=== PATIENT | female | born 1970 | race Caucasian/White ===

== ENCOUNTER 2022-04-08 13:29 | Emergency (ER) | payer MEDICAID, MEDICARE ==
[~2022-04-08] VITALS: Ht 152.4 cm; Wt 118.0 kg
[2022-04-08] MEDS ORDERED: METF10004 (13:46)
[2022-04-08] MEDS ORDERED: LISI5TAB11 (13:46)
[2022-04-08] MEDS ORDERED: HUMI40IN2 (13:46)
[2022-04-08] MEDS ORDERED: ATOR40TA75 (13:46)
[2022-04-08] MEDS ORDERED: LANTINJ4 (13:46)
[2022-04-08] MEDS ORDERED: TRAZ-252 (13:46)
[2022-04-08] MEDS ORDERED: HYDR200T3 (13:46)
[2022-04-08] MEDS ORDERED: METF500T13 (13:46)
[2022-04-08] MEDS ORDERED: TRUL10IN (13:46)
[2022-04-08] MEDS ORDERED: METH2.5T48 (13:46)
[2022-04-08] MEDS ORDERED: LIDOCAINE 1% MDV 20ML VIAL SC ONE (16:30)
[2022-04-08] MEDS ORDERED: CIPRHCOTIC OTIC (16:33)
[2022-04-08] MEDS ORDERED: NYSTOI TOP (16:35)
[2022-04-08 17:11] LABS: BASO # 0.1 10^3/uL (0.0-0.2); BASO % 0.6 % (0.0-1.0); EOS # 0.2 10^3/uL (0.0-0.5); EOS % 1.7 % (0.0-3.0); HEMATOCRIT 41.1 % (36.0-47.0); HEMOGLOBIN 13.8 g/dl (12.0-15.5); LYMPH # 2.6 10^3/uL (1.5-5.0); LYMPH % 26.9 % (24.0-44.0); MEAN CORPUSCULAR HEMOGLOBIN 31.4 pg (27.0-33.0); MEAN CORPUSCULAR HGB CONC 33.6 g/dl (32.0-36.5); MEAN CORPUSCULAR VOLUME 93.4 fl (80.0-96.0); MONO # 0.6 10^3/uL (0.0-0.8); MONO % 5.9 % (2.0-8.0); NEUTROPHILS # 6.2 10^3/uL (1.5-8.5); NEUTROPHILS % 64.6 % (36.0-66.0); PLATELET COUNT, AUTOMATED 282 10^3/uL (150-450); WHITE BLOOD COUNT 9.5 10^3/uL (4.0-10.0)
[2022-04-08 17:28] LABS: ALBUMIN 3.5 GM/DL (3.2-5.2); ALT/SGPT 34 U/L (12-78); BILIRUBIN,DIRECT < 0.1 MG/DL (0.0-0.2); BILIRUBIN,TOTAL 0.2 MG/DL (0.2-1.0); TOTAL PROTEIN 7.8 GM/DL (6.4-8.2)
[2022-04-08] MEDS ORDERED: NYST15OI4 TOP (17:55)
[2022-04-08] MEDS ORDERED: BACITRACIN OINTMENT 30GM TUBE TOP ONE (18:10)
[2022-04-08 18:32] VITALS: BP 117/76
[2022-04-08] MEDS ORDERED: FLUC150T9 PO ×2 (20:26→20:28)
== END 2022-04-08 18:35 | disposition home or self-care (01) ==
LOC: M ED 13:29
DX: E11.9 Type 2 diabetes mellitus without complications (principal); B37.2 Candidiasis of skin and nail; H66.91 Otitis media, unspecified, right ear; L02.821 Furuncle of head [any part, except face]; I10 Essential (primary) hypertension; E78.5 Hyperlipidemia, unspecified; Z79.899 Other long term (current) drug therapy; Z79.4 Long term (current) use of insulin; Z79.84 Long term (current) use of oral hypoglycemic drugs; Z88.0 Allergy status to penicillin; Z88.8 Allergy status to other drugs, medicaments and biological substances; F17.200 Nicotine dependence, unspecified, uncomplicated

== ENCOUNTER 2023-03-14 22:02 | Inpatient (IN) | payer MEDICARE, MEDICAID ==
[~2023-03-14] VITALS: Ht 152.4 cm; Wt 123.5 kg
[~2023-03-14 22:02] MED LIST: ATOR40TA75 PO; CIPRHCOTIC OTIC; FLUC150T9 PO; HUMI40IN2 INJ; HYDR200T3 PO; LANTINJ4 SUBQ; LISI5TAB11 PO; METF10004 PO; METF500T13; METH2.5T48 PO; NYST100085 TOP; NYST15OI4 TOP; TRAZ-252 PO; TRUL10IN
[2023-03-14] MEDS ORDERED: NS 1,000 ML IV ONE (22:55)
[2023-03-14] MEDS ORDERED: ONDANSETRON 4MG 2ML VIAL IV ONE (22:55)
[2023-03-14 23:20] LABS: VENOUS BASE EXCESS -3.4 (-2.0-2.0); VENOUS HCO3 20.7 MMOL/L (23.0-27.0); VENOUS O2 SATURATION 95.9 % (60.0-80.0); VENOUS PARTIAL PRESSURE CO2 34.4 mmHg (38.0-50.0); VENOUS PARTIAL PRESSURE O2 83.8 mmHg (30.0-50.0); VENOUS PH 7.398 UNITS (7.330-7.430); VENOUS STANDARD HCO3 21.6 MMOL/L; VENOUS TOTAL CO2 21.8 MMOL/L (24.0-28.0)
[2023-03-14 23:48] LABS: HEMATOCRIT 32.4 % (36.0-47.0); HEMOGLOBIN 11.3 g/dl (12.0-15.5); MEAN CORPUSCULAR HEMOGLOBIN 30.5 pg (27.0-33.0); MEAN CORPUSCULAR HGB CONC 34.9 g/dl (32.0-36.5); MEAN CORPUSCULAR VOLUME 87.6 fl (80.0-96.0)
[2023-03-14 23:58] LABS: ETHYL ALCOHOL (ETHANOL) < 0.003 % (0.000-0.010)
[2023-03-14 23:59] LABS: ACETAMINOPHEN LEVEL 7.5 UG/ML (10.0-20.0); CPK CREATINE PHOSPHOKINASE 63 U/L (34-145); SALICYLATE LEVEL < 3.0 MG/DL (<30)
[2023-03-15] VITALS (7 sets, daily range): BP systolic 114–147; BP diastolic 53–65
[2023-03-15 00:04] LABS: PLATELET COUNT, AUTOMATED 97 10^3/uL (150-450)
[2023-03-15 00:05] LABS: OSMOLALITY SERUM 291 MOSM/KG (275-295)
[2023-03-15 00:07] LABS: ALBUMIN 1.9 G/DL (3.2-5.2); ALKALINE PHOSPHATASE 185 U/L (46-116); ALT/SGPT 31 U/L (7.0-40); AST/SGOT 32 U/L (<34); BILIRUBIN,DIRECT 0.4 MG/DL (<0.4); BILIRUBIN,TOTAL 0.6 MG/DL (0.3-1.2); BLOOD UREA NITROGEN 95 MG/DL (9-23); CARBON DIOXIDE LEVEL 19 MMOL/L (20-31); CHLORIDE LEVEL 80 MMOL/L (98-107); CK-MB VALUE MASS < 1.0 NG/ML (<3.6); CREATININE FOR GFR 4.06 MG/DL (0.55-1.30); GLOMERULAR FILTRATION RATE 12.4 (>51); GLUCOSE, FASTING 317 MG/DL (60-100); MB/CK RELATIVE INDEX 1.58 (< OR =4); POTASSIUM SERUM 3.5 MMOL/L (3.5-5.1); SODIUM LEVEL 116 MMOL/L (136-145); THYROID STIMULATING HORMONE 0.901 uIU/ML (0.55-4.78); TOTAL PROTEIN 5.5 G/DL (5.7-8.2)
[2023-03-15 00:14] LABS: LYMPHOCYTES 8 % (16-44); MONOCYTES 5 % (0-5); NEUTROPHILS 87 % (28-66); PLATELET ESTIMATE DECREASED (NORMAL)
[2023-03-15] MEDS ORDERED: cefTRIAXone SOD 2 GM in D5W MINI-BAG PLUS 50 ML IV ONE (02:05)
[2023-03-15] MEDS ORDERED: NS 500 ML IV ONE (02:45)
[2023-03-15] MEDS ORDERED: MOM 30ML SUSPENSION UDC PO PRN (02:45)
[2023-03-15] MEDS ORDERED: ACETAMINOPHEN TAB 650MG DOSE (2X325MG) PO PRN (02:45)
[2023-03-15] MEDS ORDERED: GLUCAGON INJ 1MG VIAL SC PRN (02:45)
[2023-03-15] MEDS ORDERED: GLUCOSE 4GM CHEW TABLET PO PRN (02:45)
[2023-03-15] MEDS ORDERED: DEXTROSE 50% 50ML SYRINGE IV PRN (02:45)
[2023-03-15] MEDS ORDERED: LANTINJ4 SC (02:52)
[2023-03-15] MEDS ORDERED: TRUL0.5I INJ (02:54)
[2023-03-15] MEDS ORDERED: ASPI81TA26 PO (02:54)
[2023-03-15] MEDS ORDERED: CITA20TA7 PO (02:54)
[2023-03-15] MEDS ORDERED: stool softener PO (02:58)
[2023-03-15] MEDS ORDERED: OMEP40CA5 PO (02:58)
[2023-03-15] MEDS ORDERED: NIAC100T9 PO (02:58)
[2023-03-15] MEDS ORDERED: THERTAB52 PO (02:58)
[2023-03-15] MEDS ORDERED: HOME MED LIST COMPLETE! XX SCH (03:00)
[2023-03-15] MEDS: HEPARIN SOD (PORCINE) 5000UNITS/ML 1ML VIAL/SYRINGE SC SCH ×2 (05:38→13:07)
[2023-03-15 06:03] LABS: HEMATOCRIT 32.1 % (36.0-47.0); HEMOGLOBIN 11.1 g/dl (12.0-15.5); MEAN CORPUSCULAR HEMOGLOBIN 30.2 pg (27.0-33.0); MEAN CORPUSCULAR HGB CONC 34.6 g/dl (32.0-36.5); MEAN CORPUSCULAR VOLUME 87.5 fl (80.0-96.0); RED BLOOD COUNT 3.67 10^6/uL (4.00-5.40); WHITE BLOOD COUNT 27.2 10^3/uL (4.0-10.0)
[2023-03-15 06:20] LABS: CK-MB VALUE MASS < 1.0 NG/ML (<3.6)
[2023-03-15 06:21] LABS: PLATELET COUNT, AUTOMATED 94 10^3/uL (150-450)
[2023-03-15 06:22] LABS: CPK CREATINE PHOSPHOKINASE 57 U/L (34-145); MB/CK RELATIVE INDEX 1.75 (< OR =4)
[2023-03-15 06:24] LABS: ALBUMIN 1.8 G/DL (3.2-5.2); ALKALINE PHOSPHATASE 191 U/L (46-116); ALT/SGPT 28 U/L (7.0-40); AST/SGOT 27 U/L (<34); BILIRUBIN,TOTAL 0.5 MG/DL (0.3-1.2); BLOOD UREA NITROGEN 95 MG/DL (9-23); CALCIUM LEVEL 7.7 MG/DL (8.5-10.1); CARBON DIOXIDE LEVEL 23 MMOL/L (20-31); CHLORIDE LEVEL 81 MMOL/L (98-107); CREATININE FOR GFR 4.02 MG/DL (0.55-1.30); GLOMERULAR FILTRATION RATE 12.5 (>51); GLUCOSE, FASTING 313 MG/DL (60-100); POTASSIUM SERUM 3.6 MMOL/L (3.5-5.1); SODIUM LEVEL 117 MMOL/L (136-145); TOTAL PROTEIN 5.3 G/DL (5.7-8.2)
[2023-03-15 06:46] LABS: AMORPHOUS SEDIMENT SMALL (NEGATIVE); APPEARANCE, URINE CLOUDY (CLEAR); BACTERIA, URINE AUTO 1+ (NEGATIVE); BILIRUBIN, URINE AUTO NEGATIVE (NEGATIVE); BLOOD, URINE BLOOD 3+ (NEGATIVE); COLOR, URINE YELLOW (YELLOW); GLUCOSE, URINE (UA) AUTO NEGATIVE (NEGATIVE); KETONE, URINE AUTO NEGATIVE (NEGATIVE); LEUKOCYTE ESTERASE, URINE AUTO 3+ (NEGATIVE); NITRITE, URINE AUTO NEGATIVE (NEGATIVE); PROTEIN, URINE AUTO 2+ mg/dL (NEGATIVE); RBC, URINE AUTO 5 /HPF (0-3); SQUAMOUS EPITHELIAL CELL UR AU 2 /HPF (0-6); UROBILINOGEN, URINE AUTO 0.2 mg/dL (0.0-2.0); WBC, URINE AUTO TNTC /HPF (0-3)
[2023-03-15] MEDS: INSULIN LISPRO (NovoLOG) PER UNIT SC SCH ×4 (08:18→21:00)
[2023-03-15 08:55] LABS: AMPHETAMINES LEVEL URINE NEGATIVE (NEGATIVE); BARBITURATES URINE NEGATIVE (NEGATIVE); BENZODIAZEPINES URINE NEGATIVE (NEGATIVE); CANNABINOIDS URINE NEGATIVE (NEGATIVE); COCAINE METABOLITE URINE NEGATIVE (NEGATIVE); METHADONE URINE NEGATIVE (NEGATIVE); OPIATES URINE NEGATIVE (NEGATIVE); PHENCYCLIDINE URINE NEGATIVE (NEGATIVE)
[2023-03-15] MEDS: NS 1,000 ML IV SCH ×2 (09:10→21:05)
[2023-03-15] MEDS: LEVEMIR (INSULIN DETEMIR) 1 UNITS/0.01ML SC SCH ×2 (12:46→21:05)
[2023-03-15] MEDS: ASPIRIN 81MG ENTERIC TABLET PO SCH (12:47)
[2023-03-15] MEDS: ATORVASTATIN 20 MG TAB PO SCH (12:47)
[2023-03-15] MEDS: CitaloPRAM (CeleXA) 20 MG TAB PO SCH (12:47)
[2023-03-15] MEDS: PANTOPRAZOLE 40MG TAB (PROTONIX) PO SCH (12:48)
[2023-03-15 13:34] LABS: OSMOLALITY URINE 204 MOSM/KG (50-1400)
[2023-03-15 13:45] LABS: SODIUM,RANDOM URINE 15 MMOL/L
[2023-03-16] MEDS ORDERED: cefTRIAXone SOD 2 GM in D5W MINI-BAG PLUS 50 ML IV SCH (03:00)
[2023-03-16 04:01] VITALS: BP 116/50
[2023-03-16 04:12] LABS: HEMATOCRIT 30.3 % (36.0-47.0); HEMOGLOBIN 10.7 g/dl (12.0-15.5); MEAN CORPUSCULAR HEMOGLOBIN 30.5 pg (27.0-33.0); MEAN CORPUSCULAR HGB CONC 35.3 g/dl (32.0-36.5); MEAN CORPUSCULAR VOLUME 86.3 fl (80.0-96.0); PLATELET COUNT, AUTOMATED 100 10^3/uL (150-450); RED BLOOD COUNT 3.51 10^6/uL (4.00-5.40); WHITE BLOOD COUNT 27.1 10^3/uL (4.0-10.0)
[2023-03-16 04:34] LABS: ATYPICAL LYMPH 2 % (0-5); LYMPHOCYTES 9 % (16-44); MONOCYTES 5 % (0-5); NEUTROPHILS 84 % (28-66); PLATELET ESTIMATE DECREASED (NORMAL)
[2023-03-16 04:35] LABS: POLYCHROMASIA 1+
[2023-03-16 04:36] LABS: CALCIUM LEVEL 7.4 MG/DL (8.5-10.1); CREATININE FOR GFR 3.88 MG/DL (0.55-1.30)
[2023-03-16] MEDS: POTASSIUM CHLORIDE 10MEQ SR TABLET PO SCH ×2 (05:59→08:27)
[2023-03-16] MEDS: NS 1,000 ML IV SCH ×2 (06:06→18:14)
[2023-03-16 07:24] VITALS: BP 112/58
[2023-03-16] MEDS: INSULIN LISPRO (NovoLOG) PER UNIT SC SCH ×4 (07:30→20:48)
[2023-03-16] MEDS: PANTOPRAZOLE 40MG TAB (PROTONIX) PO SCH (08:27)
[2023-03-16] MEDS: ATORVASTATIN 20 MG TAB PO SCH (08:27)
[2023-03-16] MEDS: CitaloPRAM (CeleXA) 20 MG TAB PO SCH (08:27)
[2023-03-16] MEDS: ASPIRIN 81MG ENTERIC TABLET PO SCH (08:27)
[2023-03-16 09:15] LABS: C REACTIVE PROTEIN QUANTITATIV 21.2 MG/DL (<1.0)
[2023-03-16] MEDS: CEFEPIME HCL 1 GM in D5W MINI-BAG PLUS 50 ML IV SCH ×2 (10:11→21:11)
[2023-03-16 11:14] LABS: OSMOLALITY URINE 158 MOSM/KG (50-1400)
[2023-03-16 11:31] LABS: SODIUM,RANDOM URINE 14 MMOL/L
[2023-03-16 11:43] VITALS: BP 106/62
[2023-03-16 12:11] LABS: POTASSIUM SERUM 3.8 MMOL/L (3.5-5.1)
[2023-03-16] MEDS: HEPARIN SOD (PORCINE) 5000UNITS/ML 1ML VIAL/SYRINGE SQ SCH ×2 (14:28→21:11)
[2023-03-16 15:49] VITALS: BP 108/55
[2023-03-16 19:54] VITALS: BP 104/42
[2023-03-16 20:03] VITALS: BP 121/63
[2023-03-16] MEDS: LEVEMIR (INSULIN DETEMIR) 1 UNITS/0.01ML SC SCH (21:12)
[2023-03-17] VITALS (7 sets, daily range): BP systolic 106–142; BP diastolic 56–67
[2023-03-17] MEDS: NS 1,000 ML IV SCH (03:03)
[2023-03-17 04:08] LABS: HEMATOCRIT 30.4 % (36.0-47.0); HEMOGLOBIN 10.5 g/dl (12.0-15.5); MEAN CORPUSCULAR HEMOGLOBIN 30.2 pg (27.0-33.0); MEAN CORPUSCULAR HGB CONC 34.5 g/dl (32.0-36.5); MEAN CORPUSCULAR VOLUME 87.4 fl (80.0-96.0); PLATELET COUNT, AUTOMATED 123 10^3/uL (150-450); RED BLOOD COUNT 3.48 10^6/uL (4.00-5.40); WHITE BLOOD COUNT 22.4 10^3/uL (4.0-10.0)
[2023-03-17 04:35] LABS: C REACTIVE PROTEIN QUANTITATIV 15.2 MG/DL (<1.0)
[2023-03-17] MEDS: HEPARIN SOD (PORCINE) 5000UNITS/ML 1ML VIAL/SYRINGE SQ SCH ×3 (05:36→21:05)
[2023-03-17] MEDS ORDERED: LevoFLOXacin 750 MG TABLET PO SCH (06:00)
[2023-03-17] MEDS: INSULIN LISPRO (NovoLOG) PER UNIT SC SCH ×4 (07:30→21:05)
[2023-03-17 08:30] LABS: HEMATOCRIT 33.1 % (36.0-47.0); HEMOGLOBIN 11.3 g/dl (12.0-15.5); MEAN CORPUSCULAR HEMOGLOBIN 30.1 pg (27.0-33.0); MEAN CORPUSCULAR HGB CONC 34.1 g/dl (32.0-36.5); PLATELET COUNT, AUTOMATED 142 10^3/uL (150-450); RED BLOOD COUNT 3.76 10^6/uL (4.00-5.40); WHITE BLOOD COUNT 21.4 10^3/uL (4.0-10.0)
[2023-03-17 08:52] LABS: CALCIUM LEVEL 7.2 MG/DL (8.5-10.1); CREATININE FOR GFR 3.19 MG/DL (0.55-1.30); GLOMERULAR FILTRATION RATE 16.3 (>51); POTASSIUM SERUM 3.9 MMOL/L (3.5-5.1)
[2023-03-17] MEDS ORDERED: LevoFLOXacin IV 750 MG in IV 1 EA IV SCH (09:25)
[2023-03-17 10:06] LABS: LYMPHOCYTES 2 % (16-44); MONOCYTES 2 % (0-5); NEUTROPHILS 94 % (28-66)
[2023-03-17 10:07] LABS: PLATELET ESTIMATE NORMAL (NORMAL)
[2023-03-17] MEDS: ASPIRIN 81MG ENTERIC TABLET PO SCH (10:54)
[2023-03-17] MEDS: CitaloPRAM (CeleXA) 20 MG TAB PO SCH (10:55)
[2023-03-17] MEDS: PANTOPRAZOLE 40MG TAB (PROTONIX) PO SCH (10:55)
[2023-03-17] MEDS: ATORVASTATIN 20 MG TAB PO SCH (10:55)
[2023-03-17] MEDS: LEVEMIR (INSULIN DETEMIR) 1 UNITS/0.01ML SC SCH (21:06)
[2023-03-18 04:50] VITALS: BP 134/72
[2023-03-18] MEDS: HEPARIN SOD (PORCINE) 5000UNITS/ML 1ML VIAL/SYRINGE SQ SCH (05:13)
[2023-03-18 06:00] LABS: HEMATOCRIT 30.6 % (36.0-47.0); HEMOGLOBIN 10.3 g/dl (12.0-15.5); MEAN CORPUSCULAR HEMOGLOBIN 30.2 pg (27.0-33.0); MEAN CORPUSCULAR HGB CONC 33.7 g/dl (32.0-36.5); MEAN CORPUSCULAR VOLUME 89.7 fl (80.0-96.0); PLATELET COUNT, AUTOMATED 162 10^3/uL (150-450); RED BLOOD COUNT 3.41 10^6/uL (4.00-5.40); WHITE BLOOD COUNT 16.7 10^3/uL (4.0-10.0)
[2023-03-18 06:16] LABS: CALCIUM LEVEL 7.4 MG/DL (8.5-10.1); CREATININE FOR GFR 2.82 MG/DL (0.55-1.30); GLOMERULAR FILTRATION RATE 18.8 (>51); MAGNESIUM LEVEL 2.2 MG/DL (1.8-2.4); POTASSIUM SERUM 4.3 MMOL/L (3.5-5.1)
[2023-03-18 06:51] LABS: ATYPICAL LYMPH 1 % (0-5); LYMPHOCYTES 8 % (16-44); MONOCYTES 9 % (0-5); NEUTROPHILS 82 % (28-66)
[2023-03-18 06:52] LABS: ANISOCYTOSIS 1+; PLATELET ESTIMATE NORMAL (NORMAL); POLYCHROMASIA 1+
[2023-03-18 08:00] VITALS: BP 134/72
[2023-03-18] MEDS: INSULIN LISPRO (NovoLOG) PER UNIT SC SCH (08:18)
[2023-03-18] MEDS: CitaloPRAM (CeleXA) 20 MG TAB PO SCH (08:19)
[2023-03-18] MEDS: PANTOPRAZOLE 40MG TAB (PROTONIX) PO SCH (08:19)
[2023-03-18] MEDS: ASPIRIN 81MG ENTERIC TABLET PO SCH (08:19)
[2023-03-18] MEDS: ATORVASTATIN 20 MG TAB PO SCH (08:19)
[2023-03-18] MEDS ORDERED: LEVO1TAB40 PO (09:54)
[2023-03-18] MEDS ORDERED: GLIM1TAB4 PO (11:35)
[2023-03-18] MEDS ORDERED: METH2.5T48 PO (11:36)
== END 2023-03-18 11:34 | disposition home or self-care (01) | DRG 871 ==
LOC: M ED 22:02 → M ED INP 03-15 02:42 → M PCU 03-15 05:04
PROVIDERS: ADMIT Family Medicine; ATTEND Internal Medicine
DX: A41.51 Sepsis due to Escherichia coli [E. coli] (principal); N17.0 Acute kidney failure with tubular necrosis; E87.1 Hypo-osmolality and hyponatremia; N10 Acute pyelonephritis; E87.20 Acidosis, unspecified; Z68.42 Body mass index [BMI] 45.0-49.9, adult; E11.65 Type 2 diabetes mellitus with hyperglycemia; E78.5 Hyperlipidemia, unspecified; E87.6 Hypokalemia; E66.01 Morbid (severe) obesity due to excess calories; F32.A Depression, unspecified; M79.7 Fibromyalgia; I25.10 Atherosclerotic heart disease of native coronary artery without angina pectoris; E83.51 Hypocalcemia; I10 Essential (primary) hypertension; R53.1 Weakness; K21.9 Gastro-esophageal reflux disease without esophagitis; D64.9 Anemia, unspecified; M06.9 Rheumatoid arthritis, unspecified; D69.6 Thrombocytopenia, unspecified; E66.9 Obesity, unspecified; Z88.0 Allergy status to penicillin; Z88.6 Allergy status to analgesic agent; Z79.899 Other long term (current) drug therapy; Z79.82 Long term (current) use of aspirin

== ENCOUNTER → 2023-04-03 | Outpatient (CLI) | payer MEDICARE, MEDICAID ==
[~2023-04-03] MED LIST changes: +ASPI81TA26 PO; +CITA20TA7 PO; +GLIM1TAB4 PO; -HYDR200T3 PO; +HYDR200T46 PO; +LANTINJ4 SC; +LEVO1TAB40 PO; +NIAC100T9 PO; +OMEP40CA5 PO; +THERTAB52 PO; +TRUL0.5I INJ; +stool softener PO
[2023-04-03 13:49] LABS: CALCIUM LEVEL 8.5 MG/DL (8.5-10.1); CREATININE FOR GFR 1.78 MG/DL (0.55-1.30); POTASSIUM SERUM 3.9 MMOL/L (3.5-5.1)
== END ==
LOC: M LAB 12:42
PROVIDERS: ATTEND Student in an Organized Health Care Education/Training Program
DX: N10 Acute pyelonephritis (principal)

== ENCOUNTER → 2023-04-13 | Outpatient (CLI) | payer MEDICARE, MEDICAID ==
[2023-04-13 11:41] LABS: BASO # 0.1 10^3/uL (0.0-0.2); BASO % 0.5 % (0.0-1.0); EOS # 0.1 10^3/uL (0.0-0.5); EOS % 0.6 % (0.0-3.0); HEMATOCRIT 33.9 % (36.0-47.0); HEMOGLOBIN 10.7 g/dl (12.0-15.5); LYMPH # 2.3 10^3/uL (1.5-5.0); LYMPH % 24.2 % (24.0-44.0); MEAN CORPUSCULAR HEMOGLOBIN 29.5 pg (27.0-33.0); MEAN CORPUSCULAR HGB CONC 31.6 g/dl (32.0-36.5); MEAN CORPUSCULAR VOLUME 93.4 fl (80.0-96.0); MONO # 0.8 10^3/uL (0.0-0.8); MONO % 8.4 % (2.0-8.0); NEUTROPHILS # 6.3 10^3/uL (1.5-8.5); NEUTROPHILS % 65.8 % (36.0-66.0); PLATELET COUNT, AUTOMATED 397 10^3/uL (150-450); RED BLOOD COUNT 3.63 10^6/uL (4.00-5.40); WHITE BLOOD COUNT 9.6 10^3/uL (4.0-10.0)
[2023-04-13 11:46] LABS: THYROID STIMULATING HORMONE 2.873 uIU/ML (0.55-4.78)
[2023-04-13 11:47] LABS: ALBUMIN 2.3 G/DL (3.2-5.2); ALKALINE PHOSPHATASE 126 U/L (46-116); ALT/SGPT 18 U/L (7.0-40); AST/SGOT 23 U/L (<34); BILIRUBIN,TOTAL 0.3 MG/DL (0.3-1.2); BLOOD UREA NITROGEN 13 MG/DL (9-23); CALCIUM LEVEL 9.3 MG/DL (8.5-10.1); CARBON DIOXIDE LEVEL 27 MMOL/L (20-31); CHLORIDE LEVEL 98 MMOL/L (98-107); CHOLESTEROL LEVEL 93 MG/DL (<200); CHOLESTEROL RISK RATIO 4.81 (<5); CREATININE FOR GFR 1.62 MG/DL (0.55-1.30); FREE T4 1.05 NG/DL (0.89-1.76); GLOMERULAR FILTRATION RATE 35.7 (>51); GLUCOSE, FASTING 120 MG/DL (60-100); HDL CHOLESTEROL 19.3 MG/DL (>40); LDL CHOLESTEROL 46.1 MG/DL (<100); NON-HDL-C 73.7 MG/DL; POTASSIUM SERUM 4.4 MMOL/L (3.5-5.1); SODIUM LEVEL 134 MMOL/L (136-145); TOTAL PROTEIN 8.9 G/DL (5.7-8.2); TRIGLYCERIDES LEVEL 138 MG/DL (<150)
[2023-04-13 11:57] LABS: HEMOGLOBIN A1c 7.5 % (4.0-6.0)
== END ==
LOC: M PLALAB 09:16
PROVIDERS: ATTEND Student in an Organized Health Care Education/Training Program
DX: R00.0 Tachycardia, unspecified (principal); R07.9 Chest pain, unspecified; T73.3XXA Exhaustion due to excessive exertion, initial encounter; E11.69 Type 2 diabetes mellitus with other specified complication

== ENCOUNTER → 2023-06-30 | Outpatient (CLI) | payer MEDICARE, MEDICAID ==
[2023-06-30 13:27] LABS: CALCIUM LEVEL 9.4 MG/DL (8.5-10.1); CREATININE FOR GFR 1.38 MG/DL (0.55-1.30); GLOMERULAR FILTRATION RATE 42.7 (>51)
== END ==
LOC: M LAB 12:22
PROVIDERS: ATTEND Nurse Practitioner Family
DX: Z79.899 Other long term (current) drug therapy (principal)

== ENCOUNTER → 2023-08-14 | Outpatient (CLI) | payer MEDICARE, MEDICAID ==
[~2023-08-14] MED LIST changes: +DULA3PEN; +PRED10TA2
[2023-08-14 14:02] LABS: CALCIUM LEVEL 9.5 MG/DL (8.5-10.1); CREATININE FOR GFR 1.33 MG/DL (0.55-1.30); GLOMERULAR FILTRATION RATE 44.6 (>51); POTASSIUM SERUM 4.7 MMOL/L (3.5-5.1)
== END ==
LOC: M LAB 12:43
PROVIDERS: ATTEND Nurse Practitioner Family
DX: Z79.899 Other long term (current) drug therapy (principal)

== ENCOUNTER → 2024-02-15 | Outpatient (CLI) | payer MEDICARE, MEDICAID ==
[~2024-02-15] MED LIST changes: -GLIM1TAB4 PO; +GLIM1TAB84 PO
[2024-02-15 14:09] LABS: BASO # 0.1 10^3/uL (0.0-0.2); BASO % 0.6 % (0.0-1.0); EOS # 0.2 10^3/uL (0.0-0.5); EOS % 2.5 % (0.0-3.0); HEMATOCRIT 37.1 % (36.0-47.0); HEMOGLOBIN 12.1 g/dl (12.0-15.5); LYMPH # 1.5 10^3/uL (1.5-5.0); LYMPH % 18.3 % (24.0-44.0); MEAN CORPUSCULAR HEMOGLOBIN 28.9 pg (27.0-33.0); MEAN CORPUSCULAR HGB CONC 32.6 g/dl (32.0-36.5); MEAN CORPUSCULAR VOLUME 88.8 fl (80.0-96.0); MONO # 0.6 10^3/uL (0.0-0.8); MONO % 7.5 % (2.0-8.0); NEUTROPHILS # 5.8 10^3/uL (1.5-8.5); NEUTROPHILS % 70.9 % (36.0-66.0); PLATELET COUNT, AUTOMATED 223 10^3/uL (150-450); RED BLOOD COUNT 4.18 10^6/uL (4.00-5.40); WHITE BLOOD COUNT 8.1 10^3/uL (4.0-10.0)
[2024-02-15 14:36] LABS: HEMOGLOBIN A1c 7.4 % (4.0-6.0)
[2024-02-15 14:38] LABS: ALBUMIN 3.8 G/DL (3.2-5.2); ALKALINE PHOSPHATASE 201 U/L (46-116); ALT/SGPT 40 U/L (7.0-40); AST/SGOT 37 U/L (<34); BILIRUBIN,TOTAL 0.4 MG/DL (0.3-1.2); BLOOD UREA NITROGEN 16 MG/DL (9-23); CALCIUM LEVEL 10.1 MG/DL (8.5-10.1); CARBON DIOXIDE LEVEL 25 MMOL/L (20-31); CHLORIDE LEVEL 100 MMOL/L (98-107); CHOLESTEROL LEVEL 94 MG/DL (<200); CHOLESTEROL RISK RATIO 3.27 (<5); CREATININE FOR GFR 1.36 MG/DL (0.55-1.30); GLOMERULAR FILTRATION RATE 43.5 (>51); GLUCOSE, FASTING 203 MG/DL (60-100); HDL CHOLESTEROL 28.7 MG/DL (>40); LDL CHOLESTEROL 29.3 MG/DL (<100); NON-HDL-C 65.3 MG/DL; POTASSIUM SERUM 4.3 MMOL/L (3.5-5.1); SODIUM LEVEL 135 MMOL/L (136-145); TOTAL PROTEIN 8.2 G/DL (5.7-8.2); TRIGLYCERIDES LEVEL 180 MG/DL (<150)
[2024-02-15 14:40] LABS: FREE T4 1.13 NG/DL (0.89-1.76); THYROID STIMULATING HORMONE 1.916 uIU/ML (0.55-4.78)
[2024-02-15 15:10] LABS: HIV 1&2 SCREEN NEGATIVE (NEGATIVE)
[2024-02-15 15:18] LABS: HEPATITIS C VIRUS ABY INDEX 0.02 INDEX (<0.8)
== END ==
LOC: M PLALAB 11:02
PROVIDERS: ATTEND Student in an Organized Health Care Education/Training Program
DX: Z00.00 Encounter for general adult medical examination without abnormal findings (principal); R00.0 Tachycardia, unspecified; E66.01 Morbid (severe) obesity due to excess calories; E11.69 Type 2 diabetes mellitus with other specified complication; M06.9 Rheumatoid arthritis, unspecified; Z12.11 Encounter for screening for malignant neoplasm of colon; Z12.2 Encounter for screening for malignant neoplasm of respiratory organs; G47.9 Sleep disorder, unspecified; K21.9 Gastro-esophageal reflux disease without esophagitis; E55.9 Vitamin D deficiency, unspecified

== ENCOUNTER → 2024-03-03 | Outpatient (REF) | payer MEDICARE, MEDICAID | LOC: M SFHCPLAZ 12:50 | PROVIDERS: ATTEND Student in an Organized Health Care Education/Training Program | DX: R00.0 Tachycardia, unspecified (principal) ==

== ENCOUNTER → 2024-03-25 | Outpatient (CLI) | payer MEDICARE, MEDICAID | LOC: M LAB 11:32 | PROVIDERS: ATTEND Nurse Practitioner Family | DX: Z11.59 Encounter for screening for other viral diseases (principal) ==

== ENCOUNTER 2024-04-03 14:38 | Emergency (ER) | payer MEDICARE, MEDICAID ==
[~2024-04-03] VITALS: Ht 154.9 cm; Wt 116.8 kg
[~2024-04-03 14:38] MED LIST changes: -PRED10TA2; +PRED10TA2 PO
[2024-04-03] MEDS: NS 1,000 ML IV ONE ×3 (15:05→19:45)
[2024-04-03 15:14] LABS: VENOUS BASE EXCESS -3.4 (-2.0-2.0); VENOUS HCO3 21.1 MMOL/L (23.0-27.0); VENOUS O2 SATURATION 64.3 % (60.0-80.0); VENOUS PARTIAL PRESSURE CO2 36.5 mmHg (38.0-50.0); VENOUS PARTIAL PRESSURE O2 32.9 mmHg (30.0-50.0); VENOUS STANDARD HCO3 20.9 MMOL/L; VENOUS TOTAL CO2 22.2 MMOL/L (24.0-28.0)
[2024-04-03 15:33] LABS: BASO % 0.2 % (0.0-1.0); EOS % 0.1 % (0.0-3.0); HEMATOCRIT 38.4 % (36.0-47.0); HEMOGLOBIN 12.8 g/dl (12.0-15.5); LYMPH # 0.5 10^3/uL (1.5-5.0); LYMPH % 2.7 % (24.0-44.0); MEAN CORPUSCULAR HGB CONC 33.3 g/dl (32.0-36.5); MEAN CORPUSCULAR VOLUME 87.1 fl (80.0-96.0); MONO # 0.8 10^3/uL (0.0-0.8); MONO % 4.2 % (2.0-8.0); NEUTROPHILS # 17.6 10^3/uL (1.5-8.5); NEUTROPHILS % 91.7 % (36.0-66.0); PLATELET COUNT, AUTOMATED 200 10^3/uL (150-450); RED BLOOD COUNT 4.41 10^6/uL (4.00-5.40); WHITE BLOOD COUNT 19.1 10^3/uL (4.0-10.0)
[2024-04-03 15:44] LABS: ETHYL ALCOHOL (ETHANOL) < 0.003 % (0.000-0.010); LIPASE 30 U/L (12-53)
[2024-04-03 15:46] LABS: ACETONE/KETONE 1.73 MMOL/L (0.02-0.27)
[2024-04-03 16:02] LABS: PROCALCITONIN 3.82 ng/ml
[2024-04-03 16:04] LABS: OSMOLALITY SERUM 301 MOSM/KG (275-295)
[2024-04-03 16:06] LABS: ALBUMIN 3.6 G/DL (3.2-5.2); ALKALINE PHOSPHATASE 155 U/L (46-116); ALT/SGPT 44 U/L (7.0-40); AST/SGOT 19 U/L (<34); BILIRUBIN,DIRECT 0.4 MG/DL (<0.4); BILIRUBIN,TOTAL 1.1 MG/DL (0.3-1.2); BLOOD UREA NITROGEN 24 MG/DL (9-23); CALCIUM LEVEL 8.9 MG/DL (8.5-10.1); CARBON DIOXIDE LEVEL 23 MMOL/L (20-31); CHLORIDE LEVEL 94 MMOL/L (98-107); CREATININE FOR GFR 2.83 MG/DL (0.55-1.30); GLOMERULAR FILTRATION RATE 18.7 (>51); GLUCOSE, FASTING 382 MG/DL (60-100); MAGNESIUM LEVEL 1.5 MG/DL (1.8-2.4); PHOSPHORUS LEVEL 2.3 MG/DL (2.5-4.9); POTASSIUM SERUM 3.6 MMOL/L (3.5-5.1); SODIUM LEVEL 130 MMOL/L (136-145); TOTAL PROTEIN 7.5 G/DL (5.7-8.2)
[2024-04-03 16:13] LABS: HEMOGLOBIN A1c 8.8 % (4.0-6.0)
[2024-04-03] MEDS: cefTRIAXone SOD 1 GM in D5W MINI-BAG PLUS 50 ML IV ONE (16:13)
[2024-04-03] MEDS ORDERED: MORPHINE 2 MG/ML 1ML VIAL As Ordered ONE (16:55)
[2024-04-03] MEDS: MAG SULF 1GM/100ML (MAG RUN) 1 GM in IV 1 EA IV ONE (16:56)
[2024-04-03] MEDS: MORPHINE 2 MG/ML 1ML VIAL IV ONE (16:57)
[2024-04-03 17:14] LABS: CREATININE,RANDOM URINE 201.7 MG/DL
[2024-04-03] MEDS ORDERED: DULA4.5P SQ (18:10)
[2024-04-03] MEDS ORDERED: CIMZ200K SC (18:10)
[2024-04-03] MEDS ORDERED: HOME MED LIST COMPLETE! XX SCH (18:15)
[2024-04-03] MEDS: NS 500 ML IV ONE (19:45)
[2024-04-03] MEDS: metroNIDAZOLE 500 MG in IV 1 EA IV ONE (19:46)
[2024-04-03] MEDS ORDERED: KCL 20MEQ in NS 1000ML 1,000 ML IV SCH (19:50)
[2024-04-03] MEDS ORDERED: ACETAMINOPHEN TAB 650MG DOSE (2X325MG) PO PRN (19:50)
[2024-04-03] MEDS ORDERED: HYDROMORPHONE HCL 0.5 MG/ 0.5 ML SYRINGE IV PRN ×2 (19:55)
[2024-04-03] MEDS ORDERED: cefTRIAXone SOD 1 GM in D5W MINI-BAG PLUS 50 ML IV ONE (20:00)
[2024-04-03] MEDS ORDERED: INSULIN LISPRO (NovoLOG) PER UNIT SC SCH (20:00)
[2024-04-03] MEDS: MORPHINE 4 MG/ML 1ML VIAL IV PRN (20:06)
[2024-04-03 21:50] VITALS: BP 104/68; TEMP 98.4; O2SAT 95
[2024-04-03] MEDS ORDERED: HEPARIN SOD (PORCINE) 5000UNITS/ML 1ML VIAL/SYRINGE SC SCH (22:00)
[2024-04-04] MEDS ORDERED: cefTRIAXone SOD 2 GM in D5W MINI-BAG PLUS 50 ML IV SCH (13:00)
== END 2024-04-03 22:18 | disposition short-term general hospital (02) ==
LOC: M ED 14:38 → EDBD 14:38 → M ED INP 19:47 → UNDOADMIN 19:47 → M ED 22:18
DX: N13.4 Hydroureter (principal); N10 Acute pyelonephritis; A41.9 Sepsis, unspecified organism; R00.0 Tachycardia, unspecified; E11.9 Type 2 diabetes mellitus without complications; N18.30 Chronic kidney disease, stage 3 unspecified; I10 Essential (primary) hypertension; E66.9 Obesity, unspecified; M06.9 Rheumatoid arthritis, unspecified; Z88.0 Allergy status to penicillin; Z88.6 Allergy status to analgesic agent; Z79.82 Long term (current) use of aspirin; Z79.02 Long term (current) use of antithrombotics/antiplatelets; Z79.4 Long term (current) use of insulin; Z79.811 Long term (current) use of aromatase inhibitors; Z79.899 Other long term (current) drug therapy; Z79.52 Long term (current) use of systemic steroids
CPT/HCPCS: 51702; 71045; 74176; 80048; 80076; 81001; 82010; 82077; 82436; 82570; 82803; 83036; 83605; 83690; 83735; 83930; 83935; 84100; 84133; 84145; 84156; 84300; 85025; 86140; 87040; 87077; 87088; 87186; 93005; 93041; 94760; 96365; 96366; 96375; 96376; 99285; J0696; J1836; J3475

== ENCOUNTER → 2024-04-14 | Outpatient (CLI) | payer MEDICARE, MEDICAID ==
[~2024-04-14] MED LIST changes: +CIMZ200K SC; +DULA4.5P SQ
[2024-04-14 13:52] LABS: BASO # 0.1 10^3/uL (0.0-0.2); BASO % 0.7 % (0.0-1.0); EOS # 0.1 10^3/uL (0.0-0.5); HEMATOCRIT 33.5 % (36.0-47.0); HEMOGLOBIN 10.3 g/dl (12.0-15.5); LYMPH # 1.6 10^3/uL (1.5-5.0); LYMPH % 19.3 % (24.0-44.0); MEAN CORPUSCULAR HEMOGLOBIN 27.9 pg (27.0-33.0); MEAN CORPUSCULAR HGB CONC 30.7 g/dl (32.0-36.5); MEAN CORPUSCULAR VOLUME 90.8 fl (80.0-96.0); MONO # 0.5 10^3/uL (0.0-0.8); MONO % 6.2 % (2.0-8.0); NEUTROPHILS # 5.8 10^3/uL (1.5-8.5); NEUTROPHILS % 72.2 % (36.0-66.0); PLATELET COUNT, AUTOMATED 321 10^3/uL (150-450); RED BLOOD COUNT 3.69 10^6/uL (4.00-5.40); WHITE BLOOD COUNT 8.1 10^3/uL (4.0-10.0)
[2024-04-14 13:57] LABS: ALBUMIN 2.8 G/DL (3.2-5.2); BILIRUBIN,TOTAL 0.2 MG/DL (0.3-1.2); CALCIUM LEVEL 9.5 MG/DL (8.5-10.1); CREATININE FOR GFR 2.07 MG/DL (0.55-1.30); GLOMERULAR FILTRATION RATE 26.8 (>51); TOTAL PROTEIN 7.6 G/DL (5.7-8.2)
== END ==
LOC: M PLALAB 10:21
PROVIDERS: ATTEND Nurse Practitioner Family
DX: Z79.899 Other long term (current) drug therapy (principal)

== ENCOUNTER → 2024-04-14 | Outpatient (CLI) | payer MEDICARE, MEDICAID ==
[2024-04-14 13:40] LABS: APPEARANCE, URINE CLEAR (CLEAR); BACTERIA, URINE AUTO 1+ (NEGATIVE); BILIRUBIN, URINE AUTO NEGATIVE (NEGATIVE); BLOOD, URINE BLOOD 1+ (NEGATIVE); COLOR, URINE STRAW (YELLOW); GLUCOSE, URINE (UA) AUTO 1+ mg/dL (NEGATIVE); KETONE, URINE AUTO NEGATIVE (NEGATIVE); LEUKOCYTE ESTERASE, URINE AUTO TRACE (NEGATIVE); NITRITE, URINE AUTO NEGATIVE (NEGATIVE); PROTEIN, URINE AUTO NEGATIVE (NEGATIVE); RBC, URINE AUTO 1 /HPF (0-3); SPECIFIC GRAVITY URINE AUTO 1.005 (1.002-1.035); SQUAMOUS EPITHELIAL CELL UR AU 0 /HPF (0-6); UROBILINOGEN, URINE AUTO 0.2 mg/dL (0.0-2.0); WBC, URINE AUTO 7 /HPF (0-3)
[2024-04-14 13:52] LABS: BASO # 0.1 10^3/uL (0.0-0.2); BASO % 0.6 % (0.0-1.0); EOS # 0.1 10^3/uL (0.0-0.5); EOS % 1.1 % (0.0-3.0); HEMATOCRIT 33.3 % (36.0-47.0); HEMOGLOBIN 10.5 g/dl (12.0-15.5); LYMPH # 1.7 10^3/uL (1.5-5.0); LYMPH % 20.6 % (24.0-44.0); MEAN CORPUSCULAR HEMOGLOBIN 28.8 pg (27.0-33.0); MEAN CORPUSCULAR HGB CONC 31.5 g/dl (32.0-36.5); MEAN CORPUSCULAR VOLUME 91.2 fl (80.0-96.0); MONO # 0.5 10^3/uL (0.0-0.8); MONO % 5.8 % (2.0-8.0); NEUTROPHILS % 71.4 % (36.0-66.0); PLATELET COUNT, AUTOMATED 332 10^3/uL (150-450); RED BLOOD COUNT 3.65 10^6/uL (4.00-5.40); WHITE BLOOD COUNT 8.4 10^3/uL (4.0-10.0)
[2024-04-14 13:56] LABS: ALBUMIN 2.8 G/DL (3.2-5.2); BILIRUBIN,TOTAL 0.2 MG/DL (0.3-1.2); CALCIUM LEVEL 9.4 MG/DL (8.5-10.1); CREATININE FOR GFR 2.05 MG/DL (0.55-1.30); GLOMERULAR FILTRATION RATE 27.1 (>51); POTASSIUM SERUM 4.9 MMOL/L (3.5-5.1); TOTAL PROTEIN 7.4 G/DL (5.7-8.2)
[2024-04-14 14:18] LABS: CREATININE, URINE 47.3 MG/DL; MAU/CREAT RATIO 21.1 MCG/MG (0.0-30.0)
[2024-04-14 14:22] LABS: HEMOGLOBIN A1c 7.9 % (4.0-6.0)
== END ==
LOC: M PLALAB 10:13
PROVIDERS: ATTEND Student in an Organized Health Care Education/Training Program
DX: R73.9 Hyperglycemia, unspecified (principal); N18.4 Chronic kidney disease, stage 4 (severe); N39.0 Urinary tract infection, site not specified

== ENCOUNTER → 2024-04-18 | Outpatient (REF) | payer MEDICARE | LOC: M SFHCPLAZ 13:22 | PROVIDERS: ATTEND Student in an Organized Health Care Education/Training Program | DX: E87.29 Other acidosis (principal); N39.0 Urinary tract infection, site not specified ==

== ENCOUNTER → 2024-04-18 | Outpatient (CLI) | payer MEDICARE, MEDICAID ==
[2024-04-18 16:52] LABS: CALCIUM LEVEL 9.6 MG/DL (8.5-10.1); CREATININE FOR GFR 2.08 MG/DL (0.55-1.30); GLOMERULAR FILTRATION RATE 26.5 (>51)
[2024-04-18 17:37] LABS: APPEARANCE, URINE MANUAL CLEAR (CLEAR); BILIRUBIN, URINE MANUAL NEGATIVE (NEGATIVE); BLOOD URINE MANUAL TRACE (NEGATIVE); COLOR, URINE MANUAL LT YELLOW (YELLOW); GLUCOSE, URINE (UA) MANUAL NEGATIVE (NEGATIVE); KETONE, URINE MANUAL NEGATIVE (NEGATIVE); LEUKOCYTE ESTERASE, URINE MAN TRACE (NEGATIVE); NITRITE, URINE MANUAL NEGATIVE (NEGATIVE); PROTEIN, URINE MANUAL NEGATIVE (NEGATIVE); UROBILINOGEN, URINE MANUAL NORMAL (NORMAL)
[2024-04-18 18:12] LABS: BACTERIA, URINE SMALL AMOUNT; HYALINE CAST, URINE NONE SEEN /lpf (0-1); RBC, URINE 0-1 /hpf (0-3); SQUAMOUS EPITHELIAL CELL URINE SMALL AMOUNT /hpf (SMALL AMT); WBC, URINE 0-1 /hpf (0-3)
== END ==
LOC: M PLALAB 12:45
PROVIDERS: ATTEND Nurse Practitioner Adult Health
DX: E87.29 Other acidosis (principal); N39.0 Urinary tract infection, site not specified

== ENCOUNTER → 2024-04-19 | Outpatient (REF) | payer MEDICARE | LOC: M SFHCPLAZ 15:40 | PROVIDERS: ATTEND Student in an Organized Health Care Education/Training Program | DX: E87.29 Other acidosis (principal); N39.0 Urinary tract infection, site not specified; Z53.8 Procedure and treatment not carried out for other reasons ==

== ENCOUNTER → 2024-04-25 | Outpatient (CLI) | payer MEDICARE ==
[2024-04-25 12:42] LABS: APPEARANCE, URINE CLEAR (CLEAR); BACTERIA, URINE AUTO NEGATIVE (NEGATIVE); BILIRUBIN, URINE AUTO NEGATIVE (NEGATIVE); BLOOD, URINE BLOOD NEGATIVE (NEGATIVE); COLOR, URINE COLORLESS (YELLOW); GLUCOSE, URINE (UA) AUTO NEGATIVE (NEGATIVE); KETONE, URINE AUTO NEGATIVE (NEGATIVE); LEUKOCYTE ESTERASE, URINE AUTO NEGATIVE (NEGATIVE); NITRITE, URINE AUTO NEGATIVE (NEGATIVE); PROTEIN, URINE AUTO NEGATIVE (NEGATIVE); RBC, URINE AUTO 1 /HPF (0-3); SPECIFIC GRAVITY URINE AUTO 1.004 (1.002-1.035); SQUAMOUS EPITHELIAL CELL UR AU 0 /HPF (0-6); UROBILINOGEN, URINE AUTO 0.2 mg/dL (0.0-2.0); WBC, URINE AUTO 3 /HPF (0-3)
[2024-04-25 13:08] LABS: CALCIUM LEVEL 9.4 MG/DL (8.5-10.1); CREATININE FOR GFR 1.67 MG/DL (0.55-1.30); GLOMERULAR FILTRATION RATE 34.2 (>51); POTASSIUM SERUM 4.4 MMOL/L (3.5-5.1)
== END ==
LOC: M PLALAB 11:20
PROVIDERS: ATTEND Student in an Organized Health Care Education/Training Program
DX: E87.29 Other acidosis (principal); N39.0 Urinary tract infection, site not specified

== ENCOUNTER → 2024-04-28 | Outpatient (REF) | payer MEDICARE | LOC: M SFHCPLAZ 16:35 | PROVIDERS: ATTEND Student in an Organized Health Care Education/Training Program | DX: E11.69 Type 2 diabetes mellitus with other specified complication (principal) ==

== ENCOUNTER → 2024-05-11 | Outpatient (CLI) | payer MEDICARE, MEDICAID | LOC: M LAB 10:42 | PROVIDERS: ATTEND Physician Assistant | DX: Z11.59 Encounter for screening for other viral diseases (principal); Z72.89 Other problems related to lifestyle ==

== ENCOUNTER → 2024-06-24 | Outpatient (CLI) | payer MEDICARE, MEDICAID | LOC: M RAD 14:42 | PROVIDERS: ATTEND Student in an Organized Health Care Education/Training Program | DX: Z12.2 Encounter for screening for malignant neoplasm of respiratory organs (principal); F17.210 Nicotine dependence, cigarettes, uncomplicated; R91.1 Solitary pulmonary nodule; I25.10 Atherosclerotic heart disease of native coronary artery without angina pectoris; I70.0 Atherosclerosis of aorta; Z90.49 Acquired absence of other specified parts of digestive tract ==

== ENCOUNTER → 2024-08-01 | Outpatient (CLI) | payer MEDICARE, MEDICAID ==
[~2024-08-01] MED LIST changes: +CYAN500T14 PO; +METF500T13 PO; +[UNRECOGNIZED DRUG - OTHER] IV; +folate PO
[2024-08-01 13:32] LABS: HEMATOCRIT 35.3 % (36.0-47.0); MEAN CORPUSCULAR HGB CONC 31.2 g/dl (32.0-36.5); MEAN CORPUSCULAR VOLUME 86.7 fl (80.0-96.0); PLATELET COUNT, AUTOMATED 236 10^3/uL (150-450); RED BLOOD COUNT 4.07 10^6/uL (4.00-5.40); WHITE BLOOD COUNT 5.8 10^3/uL (4.0-10.0)
[2024-08-01 13:48] LABS: HEMOGLOBIN A1c 8.5 % (4.0-6.0)
[2024-08-01 13:57] LABS: ALBUMIN 3.5 G/DL (3.2-5.2); BILIRUBIN,TOTAL 0.3 MG/DL (0.3-1.2); CALCIUM LEVEL 10.1 MG/DL (8.5-10.1); CHOLESTEROL RISK RATIO 3.63 (<5); CREATININE FOR GFR 1.41 MG/DL (0.55-1.30); GLOMERULAR FILTRATION RATE 41.5 (>51); HDL CHOLESTEROL 31.1 MG/DL (>40); LDL CHOLESTEROL 40.3 MG/DL (<100); NON-HDL-C 81.9 MG/DL; POTASSIUM SERUM 4.4 MMOL/L (3.5-5.1); TOTAL PROTEIN 7.8 G/DL (5.7-8.2)
== END ==
LOC: M PLALAB 10:32
PROVIDERS: ATTEND Student in an Organized Health Care Education/Training Program
DX: E11.69 Type 2 diabetes mellitus with other specified complication (principal); N18.32 Chronic kidney disease, stage 3b

== ENCOUNTER 2024-08-08 11:06 | Day surgery (SDC) | payer MEDICARE, MEDICAID ==
[~2024-08-08] VITALS: Ht 154.9 cm; Wt 112.5 kg
[~2024-08-08 11:06] MED LIST changes: +NS 250 ML IV ONE
[2024-08-08] MEDS ORDERED: propofoL 200 MG/20 ML VIAL As Ordered ONE (13:39)
[2024-08-08] MEDS ORDERED: GLYCOPYRROLATE INJ 0.2 MG/ML 2 ML VIAL As Ordered ONE (13:39)
[2024-08-08] MEDS ORDERED: LIDOCAINE 2% 100MG/5ML SDV (FOR ANES.) As Ordered ONE (13:39)
[2024-08-08 14:32] VITALS: TEMP 97
[2024-08-08 14:55] VITALS: BP 128/79; O2SAT 98
== END 2024-08-08 15:38 | disposition home or self-care (01) ==
LOC: M OPP 11:06
PROVIDERS: ATTEND Internal Medicine Gastroenterology
DX: Z12.11 Encounter for screening for malignant neoplasm of colon (principal); D01.0 Carcinoma in situ of colon; D12.5 Benign neoplasm of sigmoid colon; D12.2 Benign neoplasm of ascending colon; Z12.12 Encounter for screening for malignant neoplasm of rectum; K57.30 Diverticulosis of large intestine without perforation or abscess without bleeding; K64.8 Other hemorrhoids; K21.9 Gastro-esophageal reflux disease without esophagitis; E11.9 Type 2 diabetes mellitus without complications; I10 Essential (primary) hypertension; E78.00 Pure hypercholesterolemia, unspecified; G47.30 Sleep apnea, unspecified; Z79.82 Long term (current) use of aspirin; Z79.4 Long term (current) use of insulin; Z79.84 Long term (current) use of oral hypoglycemic drugs; Z79.899 Other long term (current) drug therapy; Z87.891 Personal history of nicotine dependence; M06.9 Rheumatoid arthritis, unspecified; Z88.0 Allergy status to penicillin; Z91.040 Latex allergy status; Z88.6 Allergy status to analgesic agent; K44.9 Diaphragmatic hernia without obstruction or gangrene
CPT/HCPCS: 43235; 45385; 88305; J1596

== ENCOUNTER → 2024-11-14 | Outpatient (CLI) | payer MEDICARE, MEDICAID ==
[~2024-11-14] MED LIST changes: -NS 250 ML IV ONE
[2024-11-14 13:29] LABS: BASO # 0.1 10^3/uL (0.0-0.2); BASO % 0.5 % (0.0-1.0); EOS # 0.3 10^3/uL (0.0-0.5); EOS % 2.6 % (0.0-3.0); HEMATOCRIT 37.4 % (36.0-47.0); HEMOGLOBIN 11.3 g/dl (12.0-15.5); LYMPH # 1.9 10^3/uL (1.5-5.0); LYMPH % 19.2 % (24.0-44.0); MEAN CORPUSCULAR HEMOGLOBIN 24.5 pg (27.0-33.0); MEAN CORPUSCULAR HGB CONC 30.2 g/dl (32.0-36.5); MONO # 0.6 10^3/uL (0.0-0.8); MONO % 6.3 % (2.0-8.0); NEUTROPHILS # 7.2 10^3/uL (1.5-8.5); PLATELET COUNT, AUTOMATED 296 10^3/uL (150-450); RED BLOOD COUNT 4.62 10^6/uL (4.00-5.40); WHITE BLOOD COUNT 10.1 10^3/uL (4.0-10.0)
[2024-11-14 13:41] LABS: ALBUMIN 3.5 G/DL (3.2-5.2); BILIRUBIN,TOTAL 0.2 MG/DL (0.3-1.2); CALCIUM LEVEL 9.2 MG/DL (8.5-10.1); CHOLESTEROL RISK RATIO 3.5 (<5); CREATININE FOR GFR 1.39 MG/DL (0.55-1.30); GLOMERULAR FILTRATION RATE 42.2 (>51); PERCENT SATURATION 5.7 % (13.2-45.0); POTASSIUM SERUM 4.6 MMOL/L (3.5-5.1)
[2024-11-14 13:54] LABS: HEMOGLOBIN A1c 8.7 % (4.0-6.0)
== END ==
LOC: M PLALAB 09:46
PROVIDERS: ATTEND Student in an Organized Health Care Education/Training Program
DX: R00.0 Tachycardia, unspecified (principal); E66.01 Morbid (severe) obesity due to excess calories; E11.69 Type 2 diabetes mellitus with other specified complication; Z79.899 Other long term (current) drug therapy; D72.829 Elevated white blood cell count, unspecified

== ENCOUNTER → 2024-11-16 | Outpatient (CLI) | payer MEDICARE, MEDICAID ==
[~2024-11-16] MED LIST changes: +ISOVUE-370 76% 100ML VIAL As Ordered ONE
== END ==
LOC: M RAD 07:29
PROVIDERS: ATTEND Nurse Practitioner Family
DX: C18.2 Malignant neoplasm of ascending colon (principal); K76.0 Fatty (change of) liver, not elsewhere classified; K44.9 Diaphragmatic hernia without obstruction or gangrene; R91.8 Other nonspecific abnormal finding of lung field
CPT/HCPCS: 71260; 74177; Q9967

== ENCOUNTER 2024-11-29 11:36 | Observation (INO) | payer MEDICARE, MEDICAID ==
[~2024-11-29] VITALS: Ht 152.4 cm; Wt 110.3 kg
[~2024-11-29 11:36] MED LIST changes: -ISOVUE-370 76% 100ML VIAL As Ordered ONE
[2024-11-29 12:34] LABS: BASO % 0.3 % (0.0-1.0); EOS # 0.1 10^3/uL (0.0-0.5); EOS % 0.6 % (0.0-3.0); HEMATOCRIT 40.1 % (36.0-47.0); HEMOGLOBIN 12.4 g/dl (12.0-15.5); LYMPH # 1.5 10^3/uL (1.5-5.0); LYMPH % 11.2 % (24.0-44.0); MEAN CORPUSCULAR HEMOGLOBIN 24.2 pg (27.0-33.0); MEAN CORPUSCULAR HGB CONC 30.9 g/dl (32.0-36.5); MEAN CORPUSCULAR VOLUME 78.2 fl (80.0-96.0); MONO # 0.9 10^3/uL (0.0-0.8); MONO % 6.3 % (2.0-8.0); NEUTROPHILS # 10.9 10^3/uL (1.5-8.5); NEUTROPHILS % 81.1 % (36.0-66.0); PLATELET COUNT, AUTOMATED 307 10^3/uL (150-450); RED BLOOD COUNT 5.13 10^6/uL (4.00-5.40); WHITE BLOOD COUNT 13.4 10^3/uL (4.0-10.0)
[2024-11-29 13:07] LABS: CREATININE FOR GFR 1.26 MG/DL (0.55-1.30); GLOMERULAR FILTRATION RATE 47.3 (>51); POTASSIUM SERUM 4.3 MMOL/L (3.5-5.1)
[2024-11-29] MEDS ORDERED: ISOVUE-370 76% 100ML VIAL As Ordered ONE (13:13)
[2024-11-29] MEDS: CEFEPIME HCL 2 GM in DEXTROSE 5% (D5W) ADV/MINI-BAG 50 ML IV ONE (13:23)
[2024-11-29] MEDS: NS 500 ML IV ONE (13:24)
[2024-11-29 13:57] LABS: APPEARANCE, URINE HAZY (CLEAR); BACTERIA, URINE AUTO NEGATIVE (NEGATIVE); BILIRUBIN, URINE AUTO NEGATIVE (NEGATIVE); BLOOD, URINE BLOOD NEGATIVE (NEGATIVE); COLOR, URINE YELLOW (YELLOW); GLUCOSE, URINE (UA) AUTO 3+ mg/dL (NEGATIVE); KETONE, URINE AUTO TRACE mg/dL (NEGATIVE); LEUKOCYTE ESTERASE, URINE AUTO NEGATIVE (NEGATIVE); MUCUS, URINE SMALL (NEGATIVE); NITRITE, URINE AUTO NEGATIVE (NEGATIVE); PROTEIN, URINE AUTO 2+ mg/dL (NEGATIVE); RBC, URINE AUTO 2 /HPF (0-3); SPECIFIC GRAVITY URINE AUTO 1.021 (1.002-1.035); SQUAMOUS EPITHELIAL CELL UR AU 2 /HPF (0-6); UROBILINOGEN, URINE AUTO 0.2 mg/dL (0.0-2.0); WBC, URINE AUTO 2 /HPF (0-3)
[2024-11-29 14:04] LABS: INR 1.01; PARTIAL THROMBOPLASTIN TIME 25.7 SECONDS (24.8-34.2); PROTHROMBIN TIME 13.6 SECONDS (12.5-14.5)
[2024-11-29 14:30] LABS: ALBUMIN 3.7 G/DL (3.2-5.2); BILIRUBIN,DIRECT 0.1 MG/DL (<0.4); BILIRUBIN,TOTAL 0.4 MG/DL (0.3-1.2); TOTAL PROTEIN 8.2 G/DL (5.7-8.2)
[2024-11-29] MEDS ORDERED: ONDANSETRON 4MG 2ML VIAL As Ordered ONE (15:17)
[2024-11-29] MEDS: NS (Normal Saline) 0.9% 1,000 ML IV SCH (15:25)
[2024-11-29] MEDS: ACETAMINOPHEN *IV* 500 MG in IV 1 EA IV ONE (15:25)
[2024-11-29] MEDS: metroNIDAZOLE 500 MG in IV 1 EA IV ONE (15:34)
[2024-11-29] MEDS: ONDANSETRON 4MG 2ML VIAL IV ONE (15:34)
[2024-11-29] MEDS ORDERED: MOM 30ML SUSPENSION UDC PO PRN (15:35)
[2024-11-29] MEDS ORDERED: METO1TAB87 PO (15:38)
[2024-11-29] MEDS ORDERED: NYST-13 TOP (15:38)
[2024-11-29] MEDS ORDERED: JARD1TAB PO (15:38)
[2024-11-29] MEDS ORDERED: METF750T36 PO (15:38)
[2024-11-29] MEDS ORDERED: DULA4.5P PO (15:38)
[2024-11-29] MEDS ORDERED: TRAZ1TAB14 PO (15:38)
[2024-11-29] MEDS ORDERED: FOLI0.8T3 PO (15:39)
[2024-11-29] MEDS ORDERED: D3 H10002 PO (15:39)
[2024-11-29] MEDS ORDERED: HOME MED LIST COMPLETE! XX SCH (15:40)
[2024-11-29] MEDS: CitaloPRAM (CeleXA) 20 MG TAB PO SCH (16:22)
[2024-11-29] MEDS: OMEPRAZOLE 20MG CAP PO SCH (16:23)
[2024-11-29] MEDS: ATORVASTATIN 20 MG TAB PO SCH (16:23)
[2024-11-29] MEDS: FOLIC ACID 1MG TAB PO SCH (16:23)
[2024-11-29] MEDS: ASPIRIN 81MG ENTERIC TABLET PO SCH (16:23)
[2024-11-29] MEDS: CYANOCOBALAMIN 500 MCG TAB PO SCH (16:24)
[2024-11-29] MEDS: dexAMETHasone 20MG/5ML VIAL IV SCH (16:32)
[2024-11-29] MEDS: LR 1,000 ML IV SCH (16:32)
[2024-11-29] MEDS: SCOPOLAMINE 1MG TRANSDERMAL PATCH TOP SCH (16:32)
[2024-11-29] MEDS: ONDANSETRON 4MG 2ML VIAL IV SCH (16:33)
[2024-11-29] MEDS: LevoFLOXacin IV 750 MG in IV 1 EA IV SCH (17:09)
[2024-11-29] MEDS ORDERED: DEXTROSE 50% 50ML SYRINGE IV PRN (17:20)
[2024-11-29] MEDS ORDERED: GLUCAGON INJ 1MG VIAL SC PRN (17:20)
[2024-11-29] MEDS ORDERED: GLUCOSE 4 GM CHEW PO PRN (17:20)
[2024-11-29 17:35] VITALS: BP 145/89; TEMP 97.9; O2SAT 97
[2024-11-29] MEDS: INSULIN LISPRO (NovoLOG) PER UNIT SC SCH ×2 (18:01→20:47)
[2024-11-29 20:43] VITALS: BP 142/86; TEMP 99.1; O2SAT 92
[2024-11-29] MEDS: NYSTATIN CREAM 15GM TOP SCH (20:46)
[2024-11-29] MEDS: LEVEMIR (INSULIN DETEMIR) 1 UNITS/0.01ML SC SCH (20:47)
[2024-11-29] MEDS: traZODone 50 MG TAB PO SCH (20:48)
[2024-11-29] MEDS: METOPROLOL TART 25 MG TABLET PO SCH (20:48)
[2024-11-29] MEDS: ACETAMINOPHEN 325 MG TAB PO PRN (20:50)
[2024-11-29] MEDS: metroNIDAZOLE 500 MG in IV 1 EA IV SCH (23:34)
[2024-11-30 04:09] VITALS: BP 122/53; TEMP 97.6; O2SAT 94
[2024-11-30 05:18] LABS: MEAN CORPUSCULAR HEMOGLOBIN 23.8 pg (27.0-33.0); MEAN CORPUSCULAR VOLUME 79.3 fl (80.0-96.0); PLATELET COUNT, AUTOMATED 238 10^3/uL (150-450); RED BLOOD COUNT 4.29 10^6/uL (4.00-5.40); WHITE BLOOD COUNT 9.7 10^3/uL (4.0-10.0)
[2024-11-30 05:25] LABS: HEMOGLOBIN 10.2 g/dl (12.0-15.5)
[2024-11-30 05:45] LABS: CALCIUM LEVEL 9.3 MG/DL (8.5-10.1); CREATININE FOR GFR 1.13 MG/DL (0.55-1.30); GLOMERULAR FILTRATION RATE 53.6 (>51)
[2024-11-30] MEDS: metroNIDAZOLE (FLAGYL) 500MG TABLET PO SCH (06:49)
[2024-11-30] MEDS ORDERED: LEVO75TAB PO (08:21)
[2024-11-30] MEDS ORDERED: METR-265 PO (08:21)
[2024-11-30] MEDS ORDERED: TRAN1DIS4 TOP (08:21)
[2024-11-30] MEDS ORDERED: ONDA-83 PO (08:21)
[2024-11-30] MEDS ORDERED: CEFD300CAP PO (08:23)
[2024-11-30] MEDS: VITAMIN D 1,000 INTERNATIONAL UNITS TABLET PO SCH (08:44)
[2024-11-30 08:46] VITALS: BP 132/82
[2024-11-30] MEDS ORDERED: ENOXAPARIN 40MG/0.4ML SYRINGE (J1650 PER 10MG) SC SCH (09:00)
[2024-11-30] MEDS ORDERED: LevoFLOXacin 750 MG TABLET PO SCH (18:00)
== END 2024-11-30 11:22 | disposition home or self-care (01) ==
LOC: M ED 11:36 → M ED INP 11:37 → M MSPAV 17:33
PROVIDERS: ADMIT Student in an Organized Health Care Education/Training Program; ATTEND Student in an Organized Health Care Education/Training Program
DX: R11.10 Vomiting, unspecified (principal); K04.7 Periapical abscess without sinus; K02.9 Dental caries, unspecified; L03.213 Periorbital cellulitis; E11.9 Type 2 diabetes mellitus without complications; D01.0 Carcinoma in situ of colon; F32.A Depression, unspecified; E78.5 Hyperlipidemia, unspecified; I25.10 Atherosclerotic heart disease of native coronary artery without angina pectoris; Z79.82 Long term (current) use of aspirin; K21.9 Gastro-esophageal reflux disease without esophagitis; G47.00 Insomnia, unspecified; R91.8 Other nonspecific abnormal finding of lung field; Z79.899 Other long term (current) drug therapy; Z79.84 Long term (current) use of oral hypoglycemic drugs
CPT/HCPCS: 36415; 70355; 70487; 80048; 80076; 81001; 83605; 85025; 85027; 85610; 85730; 87040; 87086; 93005; 93041; 94760; 96361; 96365; 96366; 96367; 96375; 96376; 99285; G0378; J0131; J0692; J1100; J1815; J1836; J1956; J2405; Q9967

== ENCOUNTER 2025-01-02 12:41 | Outpatient (CLI) | payer MEDICARE, MEDICAID ==
[~2025-01-02] VITALS: Ht 154.9 cm; Wt 110.0 kg
[~2025-01-02 12:41] MED LIST changes: +ALBUTEROL SULFATE 2.5MG/0.5ML INH NEB SOLN INH PRN; +CEFD300CAP PO; +D3 H10002 PO; +DULA4.5P PO; +EPINEPHrine INJ 1 MG/ML 1ML AMP IM PRN; +FOLI0.8T3 PO; +JARD1TAB PO; +LEVO75TAB PO; +METF750T36 PO; +METO1TAB87 PO; +METR-265 PO; +NYST-13 TOP; +ONDA-83 PO; +TRAN1DIS4 TOP; +TRAZ1TAB14 PO; +diphenhydrAMINE 50MG/ML VIAL IV PRN; +methylPREDNISolone 125MG 2ML VIAL IV PRN
[2025-01-02 13:00] VITALS: BP 177/94; O2SAT 97
[2025-01-02] MEDS: IRON SUCROSE 300 MG in NS 250 ML OVER 90 MIN. IV ONE (13:05)
[2025-01-02 15:06] VITALS: BP 137/78; O2SAT 97
== END 2025-01-02 15:08 ==
LOC: M INFU 12:41
PROVIDERS: ATTEND Student in an Organized Health Care Education/Training Program
DX: D50.9 Iron deficiency anemia, unspecified (principal); Z88.0 Allergy status to penicillin; Z88.6 Allergy status to analgesic agent; Z91.040 Latex allergy status
CPT/HCPCS: 96365; 96366; J1756

== ENCOUNTER → 2025-02-14 | Outpatient (REF) | payer MEDICARE ==
[~2025-02-14] MED LIST changes: -ALBUTEROL SULFATE 2.5MG/0.5ML INH NEB SOLN INH PRN; -EPINEPHrine INJ 1 MG/ML 1ML AMP IM PRN; -NYST-13 TOP; +NYST0.1C TOP; -diphenhydrAMINE 50MG/ML VIAL IV PRN; -methylPREDNISolone 125MG 2ML VIAL IV PRN
[2025-02-14 13:26] LABS: APPEARANCE, URINE CLEAR (CLEAR); BACTERIA, URINE AUTO 1+ (NEGATIVE); BILIRUBIN, URINE AUTO NEGATIVE (NEGATIVE); BLOOD, URINE BLOOD 1+ (NEGATIVE); COLOR, URINE STRAW (YELLOW); GLUCOSE, URINE (UA) AUTO 3+ mg/dL (NEGATIVE); KETONE, URINE AUTO NEGATIVE (NEGATIVE); LEUKOCYTE ESTERASE, URINE AUTO 1+ (NEGATIVE); NITRITE, URINE AUTO NEGATIVE (NEGATIVE); PROTEIN, URINE AUTO NEGATIVE (NEGATIVE); RBC, URINE AUTO 1 /HPF (0-3); SPECIFIC GRAVITY URINE AUTO 1.008 (1.002-1.035); SQUAMOUS EPITHELIAL CELL UR AU 3 /HPF (0-6); UROBILINOGEN, URINE AUTO 0.2 mg/dL (0.0-2.0); WBC, URINE AUTO 10 /HPF (0-3)
[2025-02-14 13:53] LABS: CREATININE, URINE 43.3 MG/DL; MAU/CREAT RATIO 27.7 MCG/MG (0.0-30.0)
== END ==
LOC: M SFHCPLAZ 09:52
PROVIDERS: ATTEND Student in an Organized Health Care Education/Training Program
DX: Z01.818 Encounter for other preprocedural examination (principal); I10 Essential (primary) hypertension

== ENCOUNTER → 2025-05-05 | Outpatient (CLI) | payer MEDICARE ==
[~2025-05-05] MED LIST changes: +GASTROGRAFIN SOLUTION 30 ML As Ordered ONE; +ISOVUE-370 76% 100 ML VIAL As Ordered ONE
[2025-05-05 09:36] LABS: CREATININE FOR GFR 1.49 MG/DL (0.55-1.30); GLOMERULAR FILTRATION RATE 41.5 (>51)
== END ==
LOC: M RAD 07:50
PROVIDERS: ATTEND Nurse Practitioner Family
DX: C18.2 Malignant neoplasm of ascending colon (principal)
CPT/HCPCS: 36415; 74177; 82565; 84520; Q9963; Q9967

== ENCOUNTER 2025-05-07 18:17 | Emergency (ER) | payer MEDICARE, MEDICAID ==
[~2025-05-07] VITALS: Ht 152.4 cm; Wt 100.9 kg
[~2025-05-07 18:17] MED LIST changes: -GASTROGRAFIN SOLUTION 30 ML As Ordered ONE; -ISOVUE-370 76% 100 ML VIAL As Ordered ONE
[2025-05-07 19:14] LABS: BASO # 0.0 10^3/uL (0.0-0.2); BASO % 0.4 % (0.0-1.0); EOS # 0.1 10^3/uL (0.0-0.5); EOS % 1.3 % (0.0-3.0); LYMPH # 1.3 10^3/uL (1.5-5.0); LYMPH % 19.9 % (24.0-44.0); MONO # 0.7 10^3/uL (0.0-0.8); MONO % 9.8 % (2.0-8.0); NEUTROPHILS # 4.6 10^3/uL (1.5-8.5); NEUTROPHILS % 68.3 % (36.0-66.0); PLATELET COUNT, AUTOMATED 256 10^3/uL (150-450)
[2025-05-07] MEDS: ACETAMINOPHEN *IV* 1,000 MG in IV 1 EA IV ONE (19:40)
[2025-05-07 19:42] LABS: ALT/SGPT 12.0 U/L (7.0-40); AST/SGOT 11.0 U/L (<34)
[2025-05-07] MEDS: LevoFLOXacin IV 750 MG in IV 1 EA IV ONE (20:57)
[2025-05-07] MEDS: metroNIDAZOLE 500 MG in IV 1 EA IV ONE (20:57)
[2025-05-07] MEDS: NS (Normal Saline) 0.9% 1,000 ML IV ONE (21:22)
[2025-05-08] MEDS: metroNIDAZOLE 500 MG in IV 1 EA IV SCH (05:28)
[2025-05-08 05:57] VITALS: BP 121/81
[2025-05-08] MEDS: METOPROLOL TART 25 MG TABLET PO ONE (05:57)
[2025-05-08] MEDS: LanTUS (INSULIN GLARGINE INJ) 1 UNITS/0.01 ML SC ONE (05:58)
[2025-05-08 06:38] VITALS: BP 114/65; TEMP 98.9; O2SAT 95
== END 2025-05-08 06:59 | disposition short-term general hospital (02) ==
LOC: M ED 18:17 → EDBD 18:17 → M ED 05-08 06:59
DX: L02.211 Cutaneous abscess of abdominal wall (principal); E11.9 Type 2 diabetes mellitus without complications; I25.119 Atherosclerotic heart disease of native coronary artery with unspecified angina pectoris; K21.9 Gastro-esophageal reflux disease without esophagitis; E55.9 Vitamin D deficiency, unspecified; E78.5 Hyperlipidemia, unspecified; F32.A Depression, unspecified; Z88.0 Allergy status to penicillin; Z88.6 Allergy status to analgesic agent; Z91.040 Latex allergy status; Z79.1 Long term (current) use of non-steroidal anti-inflammatories (NSAID); Z79.2 Long term (current) use of antibiotics; Z79.4 Long term (current) use of insulin; Z79.84 Long term (current) use of oral hypoglycemic drugs; Z79.899 Other long term (current) drug therapy
CPT/HCPCS: 71045; 80047; 80076; 83605; 83690; 85025; 87040; 87070; 87077; 93041; 96365; 96366; 96372; 96375; 99285; J0131; J1815; J1836; J1956

== ENCOUNTER → 2025-06-21 | Outpatient (REF) | payer MEDICARE ==
[~2025-06-21] MED LIST changes: -FOLI0.8T3 PO; +FOLI800T5 PO
[2025-06-21 15:41] LABS: APPEARANCE, URINE MANUAL HAZY (CLEAR); COLOR, URINE MANUAL ORANGE (YELLOW)
[2025-06-21 15:42] LABS: BILIRUBIN, URINE MANUAL OBSCURED (NEGATIVE); BLOOD URINE MANUAL OBSCURED (NEGATIVE); GLUCOSE, URINE (UA) MANUAL OBSCURED mg/dL (NEGATIVE); KETONE, URINE MANUAL OBSCURED mg/dL (NEGATIVE); LEUKOCYTE ESTERASE, URINE MAN OBSCURED (NEGATIVE); NITRITE, URINE MANUAL OBSCURED (NEGATIVE); PH,URINE MAN OBSCURED UNITS (5.0 - 7.0); PROTEIN, URINE MANUAL OBSCURED mg/dL (NEGATIVE); SPECIFIC GRAVITY,URINE MANUAL 1.006 (1.002-1.035); UROBILINOGEN, URINE MANUAL OBSCURED mg/dl (NORMAL)
[2025-06-21 15:50] LABS: WBC, URINE TNTC /hpf (0-3)
[2025-06-21 15:51] LABS: BACTERIA, URINE LARGE AMOUNT; MUCUS, URINE SMALL AMOUNT (NEGATIVE); SQUAMOUS EPITHELIAL CELL URINE MOD AMOUNT /hpf (SMALL AMT)
[2025-06-21 15:52] LABS: HYALINE CAST, URINE NONE SEEN /lpf (0-1)
== END ==
LOC: M SFHCPLAZ 13:21
PROVIDERS: ATTEND Family Medicine
DX: R39.9 Unspecified symptoms and signs involving the genitourinary system (principal)